=== PATIENT | female | born 1960 | race Caucasian/White ===

== ENCOUNTER 2018-06-10 12:06 | Inpatient (IN) ==
--- NOTE | 2018-06-01 16:22 | Anesthesiology Consultation ---
Date of Service June 01, 2018 Assessment & Plan (1) Encounter for pre-operative examination: Plan: Patient noted to have new anemia on pre-op labs, and PCP alerted. Evaluated by PCP 06/09. Per clearance note: "Likely iron def anemia due to UGI etiology, ? Gastritis, ulcer. She is off her NSAIDS at this time. Continue PPI. Start iron supplement. Consider EGD or hematology referral. Check CBC and smear in 1-2 months. She has no known cardiac issues, pt is asymptomatic, I think she is stable for surgery." Dr Contreras notified re: significant anemia. Chart Review Chart Review: Acceptable Risk for Surgery and Patient seen in Pre Admission Testing Teaching & Discussion Instructed NPO after midnight before surgery, except medications with 15 cc of water. Medication instructions provided according to the PAT guidelines. History Surgery Operation Date: 06/10/18 08:50 Proposed Procedures p Right Total Hip Replacement - Wilmer Contreras MD Height/Weight Height: 5 ft 6 in Weight: 71.8 kg Allergies Allergy/AdvReac Type Severity Reaction Status Date / Time No Known Allergies Allergy Verified 05/28/18 08:51 Medications Home Medications Medication Instructions Recorded Confirmed Last Taken diclofenac sodium 1 dose TOPICAL UD PRN 05/28/18 05/28/18 Unknown etodolac 500 mg PO BID 05/28/18 05/28/18 Unknown lisinopril 10 mg PO QAM 05/28/18 05/28/18 Unknown omeprazole 20 mg PO QAM 05/28/18 05/28/18 Unknown tolterodine 2 mg PO QAM 05/28/18 05/28/18 Unknown Past Medical History Medical History GERD (gastroesophageal reflux disease) Hypertension Iron deficiency anemia Osteoarthritis Overactive bladder Past Surgical History Surgical History History of colonoscopy History of tubal ligation Past Anesthesia History No Hx of Anesthesia Complications and No Family Hx of Anesthesia Complications History of PONV No Motion Sickness Screening History of Motion Sickness: No Social History Smoking Status: Current every day smoker tobacco type: cigarettes Smoking cigarettes per day: 1 PACK Q 3 DAYS x 20yrs Do You Dip or Chew Tobacco: No Hx Alcohol Use: Yes Alcohol type: wine alcohol intake frequency: a few times a month Hx Substance Use: No substance use type: does not use Exercise / Class Metabolic Activity III < 4 Walking/Shop/Light housework (Denies CP or SOB with stairs but currently very limited by hip pain) Review of Systems Pt denies any recent chest pain, shortness of breath, palpitations, cough, fever or URI. Physical Exam Vital Signs BP: 143/82 (pt follows with PCP for HTN) P: 71bpm SPO2: 98% RA T: 98.1 F R: 16 ENMT Mouth: + dentures (full upper); no chipped teeth and no loose teeth Thyromental Distance: > or= 3.5 Finger Breadths (4.0) Mallampati Class: II Mouth / Teeth: 1. missing 2. missing Neck normal visual inspection; neck extension not limited Respiratory normal respiratory effort Auscultation: lungs clear to auscultation bilaterally Cardiovascular Rate/Rhythm: regular rate and regular rhythm Heart Sounds: no murmur Vessels: no carotid bruit Testing Electrocardiogram Date: 06/01/18 Findings: + NSR @ (81) Chest X-Ray Date: 06/01/18 Findings: + NAD Laboratory Results 06/01/18 14:30 06/01/18 14:30 Blood Type A Positive 06/01/18 14:30 Antibody Screen NEGATIVE 06/01/18 14:30 PT 10.1 Seconds (9.0-12.0) 06/01/18 14:30 INR 1.0 (0.9-1.1) 06/01/18 14:30 APTT 23.8 Seconds (21.0-31.0) 06/01/18 14:30 PCP Repeated Labs 06/07 WBC: 7.61 H/H: 9.8/32.3 PLATELETS: 524
--- NOTE | 2018-06-01 16:25 | PAT Medication Instructions ---
Medication Instructions Date of Service June 01, 2018 Home Medications diclofenac sodium 1 dose TOPICAL UD PRN etodolac 500 mg PO BID lisinopril 10 mg PO QAM omeprazole 20 mg PO QAM tolterodine 2 mg PO QAM ASK your surgeon for instructions etodolac 500 mg PO BID STOP taking 24 hours before surgery diclofenac sodium 1 dose TOPICAL UD PRN DO NOT take the morning of surgery lisinopril 10 mg PO QAM tolterodine 2 mg PO QAM Take morning of surgery With a small sip of water, OTHERWISE NOTHING TO EAT OR DRINK AFTER MIDNIGHT: omeprazole 20 mg PO QAM Other Notes If you have any questions please call us at [phone] or [phone] or [phone] or [phone]
[2018-06-01 17:03] LABS: Basophils # (auto) 0.17 K/uL (0-0.2); Eosinophils # (auto) 0.28 K/uL (0-0.5); Eosinophils % (auto) 3.3 %; Hematocrit (blood only) 31.8 % (37-47); Hemoglobin 9.7 g/dL (12.0-16.0); Immature Granulocytes # (auto) 0.02 K/uL (0.00-0.02); Immature Granulocytes % (auto) 0.2 %; Lymphocytes # (auto) 2.43 K/uL (1.2-3.4); Lymphocytes % (auto) 28.6 %; Mean Corpuscular Hgb Conc 30.5 g/dL (32-36); Mean Corpuscular Volume 94.1 fL (80-100); Monocytes # (auto) 0.76 K/uL (0.11-0.59); Neutrophils # (auto) 4.83 K/uL (1.4-6.5); Neutrophils % (auto) 56.9 %; Platelet Count 535 K/uL (130-400); RDW Coefficient of Variation 14.6 % (11.5-14.5); RDW Standard Deviation 50.3 fL (36.4-46.3); Red Blood Count 3.38 M/uL (4.2-5.4); White Blood Count 8.49 K/uL (4.8-10.8)
[2018-06-01 17:14] LABS: Partial Thromboplastin Ratio 0.9; Partial Thromboplastin Time 23.8 Seconds (21.0-31.0); Prothrombin Time 10.1 Seconds (9.0-12.0)
--- NOTE | 2018-06-01 17:14 | XRay Report ---
XR chest Pre-admission PA/Lat HISTORY: Preop. COMPARISON: None. FINDINGS: The lungs are clear. Cardiac silhouette is normal in size. No pleural effusions. No pneumot horax. Old, healed right-sided rib fractures. IMPRESSION: No acute process. Electronically signed by: Miguel A Jose M.D. 06/01/2018 5:13 PM
[2018-06-01 17:15] LABS: BUN Creatinine Ratio 21.1 (10-20); Blood Urea Nitrogen 16 mg/dl (7-18); C Reactive Protein < 0.29 mg/dl (0-0.29); Calcium 8.8 mg/dl (8.5-10.1); Carbon Dioxide 29 mmol/L (21-32); Chloride 107 mmol/L (98-107); Creatinine Clr Calc Pharmacy 81.8 ml/min; Est GFR (African American) 99.3; Est GFR (Non-African American) 85.7; Glucose 112 mg/dl (70-99); Potassium 4.3 mmol/L (3.5-5.1); Sodium 140 mmol/L (136-145)
--- NOTE | 2018-06-04 10:04 | History and Physical Report ---
DATE OF ADMISSION: 06/10/2018 CHIEF COMPLAINT: Bilateral hip pain and discomfort, right side greater than left. 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 She has about a year history of markedly increasing bilateral hip pain and discomfort, right side a bit worse than the left. She has been through extensive conservative treatment including multiple medicines without adequate relief. She is now using oral meds as well as a topical gel. She has resorted to using a cane due to the severe pain. 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 X-ray show advanced bilateral hip arthritis. She now likes to proceed with surgical treatment. She has been to [facility] as well without adequate relief. PAST MEDICAL HISTORY: 1. Arthritis. 2. Hypertension. PAST SURGICAL HISTORY: Include tubal ligation. ALLERGIES: None. CURRENT MEDICATIONS: 1. Lisinopril 10 mg. 2. Diclofenac gel. 3. Etodolac. 4. Detrol. SOCIAL HISTORY: A 57-year-old white female. 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 She is from [place]. She is . Rare alcohol intake. FAMILY HISTORY: Significant for heart disease. REVIEW OF SYSTEMS: Negative for diabetes, neurologic problems, vascular problems or bleeding disorders. No chest pain or shortness of breath. No signs of DVT or PE. PHYSICAL EXAMINATION: GENERAL: The patient is a pleasant, relatively healthy, middle-aged female, looks to be in pretty good health. HEENT: Benign. NECK: Supple. No lymphadenopathy. LUNGS: Clear to auscultation. HEART: Has a regular rate and rhythm. ABDOMEN: Soft, nontender, nondistended. EXTREMITIES: Grossly neurovascularly intact except as follows. Examination of both hips reveal patient walks with a markedly antalgic gait. She waddles when she walks. Leg lengths clinically appear pretty equal. She has very stiff hips on both sides. She has pain with any type of internal rotation of either hip. She can internally rotate to -10 about on both sides. Negative straight leg raise. No knee effusion. X-RAYS: X-rays of both hips reveal advanced bilateral hip DJD. She has cystic changes of the femoral head and flattening of the femoral head on both sides. She has cystic change of the acetabulum as well. She has got complete loss of the joint space. ASSESSMENT: A 57-year-old white female with advanced bilateral hip degenerative joint disease, failed conservative care. This has progressed markedly over the past year and she is having trouble doing her job. She would like to proceed with surgical treatment. PLAN: We will take her to the operating room and do a right total hip replacement. She is hoping to do the left one about 6 weeks later. The risks and benefit of right total hip replacement were explained to the patient including but not limited to DVT, PE, , infection, neurological injury, vascular injury, bleeding problem, pain, limited range of motion, stiffness, failure to relieve her symptoms, incomplete relief of symptoms, need for further surgery in future, fracture, leg length inequality, nerve palsy, dislocation, etc. The patient understands and desires to proceed. Informed consent was obtained. We did do a preoperative workup and her hemoglobin is a bit low and her platelets are elevated. She is currently undergoing a workup for this. Assuming this is all cleared up, we will proceed as described above. She is hoping doing the other hip about 6 weeks later. I did talk to her about lengthening her leg and we will bring her right leg back to its normal length and therefore it is going to feel longer than the left leg until that gets fixed surgically as well. The patient understands.
[~2018-06-10 12:06] MED LIST: ACETAMINOPHEN 500 MG TAB PO SCH; BUPIVACAINE 0.5 % 5 MG/1 ML PF 10ML VIAL ONE; CEFAZOLIN 2000MG 2,000 MG/15 ML SYR IV SCH; FAMOTIDINE 20 MG TAB PO SCH; GABAPENTIN 300 MG x 2 PO SCH; LR 500ML BOLUS, THEN 15ML/HR IV SCH; LR 60ML/HR IV SCH; METOCLOPRAMIDE HCL 10 MG TABLET PO SCH; SCOPOLAMINE 1.5 MG TDSY TD SCH; TRANEXAMIC ACID 1,000 MG **IV Intra-op IV SCH
[2018-06-10] MEDS ORDERED: ONDANSETRON INJ 2 MG/ML 2 ML VIAL IV PRN ×3 (12:11→17:19)
[2018-06-10] MEDS ORDERED: fentaNYL citrate 100 MCG/2 ML VIAL IV PRN (12:11)
[2018-06-10] MEDS ORDERED: ATROPINE SULFATE 0.1 MG/ML 10ML SYR IV PRN (12:11)
[2018-06-10] MEDS ORDERED: ePHEDrine sulfate 50 MG/ML AMP IV PRN ×2 (12:11→14:32)
[2018-06-10] MEDS ORDERED: MIDAZOLAM HCL 1 MG/ML 2ML VIAL ONE (12:21)
[2018-06-10] MEDS ORDERED: DEXAMETHASONE SOD INJ 4 MG/ML VIAL ONE (12:23)
[2018-06-10] MEDS ORDERED: PROPOFOL IV EMULSION 10 MG/ML 20 ML VIAL IV ONE (12:23)
[2018-06-10] MEDS ORDERED: ONDANSETRON INJ 2 MG/ML 2 ML VIAL ONE (12:23)
[2018-06-10] MEDS ORDERED: LIDOCAINE HCL 2% 2 ML VIAL/AMP(20MG/ML) INFIL ONE (12:23)
--- NOTE | 2018-06-10 12:50 | History & Physical Bridge Note ---
Date of Service June 10, 2018 History & Physical Bridge Note I have examined the patient, reviewed the History & Physical and in the interval since the performance of the History & Physical I have noted the following changes of clinical significance: no changes noted
[2018-06-10] MEDS ORDERED: BUPIVACAINE/EPINEPHRINE 0.5% MPF 1:200,000 30 ML VIAL ONE (12:59)
[2018-06-10] MEDS ORDERED: BACITRACIN INJ 50,000 UNIT VIAL ONE (13:00)
[2018-06-10] MEDS ORDERED: MoRPHine SULFATE PF 1 MG/ML 10 ML AMP/VIAL ONE (14:20)
[2018-06-10] MEDS ORDERED: MoRPHine SULFATE PF 1 MG/ML 10 ML AMP/VIAL INT SPINAL ONE (14:32)
[2018-06-10] MEDS ORDERED: NALOXONE HCL 0.4 MG/1 ML VIAL/CARP IV PRN ×2 (14:32→17:19)
[2018-06-10] MEDS ORDERED: DiphenhydrAMINE HCL 50 MG/ML VIAL IV PRN (14:32)
[2018-06-10] MEDS ORDERED: NALOXONE HCL 1 MG in SODIUM CHLORIDE 0.9% 1000ML 1,000 ML IV PRN (14:32)
[2018-06-10] MEDS ORDERED: MoRPHine SULFATE 2 MG/ML CARP IV PRN (14:32)
[2018-06-10] MEDS ORDERED: NALOXONE HCL 0.08 MG in SYRINGE 1.8 ML IV PRN (14:32)
[2018-06-10] MEDS ORDERED: HYDROmorphone INJ 0.5 MG/0.5 ML SYR IV PRN ×2 (14:32→17:19)
[2018-06-10] MEDS ORDERED: LACTATED RINGER'S 500 ML IV PRN (14:32)
[2018-06-10] MEDS ORDERED: NALBUPHINE HCL INJ 10 MG/ML AMP IV PRN (14:32)
[2018-06-10] MEDS ORDERED: SODIUM CHLORIDE 0.9% 1000ML 1,000 ML IV SCH (14:45)
[2018-06-10] MEDS ORDERED: NO NARCOTICS OR SEDATIVES SCH (14:45)
[2018-06-10] MEDS ORDERED: ALBUMIN HUMAN 5% 12.5 GM/250 ML VIAL IV ONE (15:35)
[2018-06-10] MEDS ORDERED: PHENYLEPHRINE 100MCG/ML 5ML SYR ONE (15:41)
--- NOTE | 2018-06-10 16:19 | Post Operative Brief Note ---
Immediate Post Op Note v1 Date of Surgery June 10, 2018 Pre & Post Diagnosis Operation Date: 06/10/18 14:20 Pre-Op Diagnosis: Right Hip Degenerative Joint Disease Post-Op Diagnosis: Right Hip Degenerative Joint Disease Procedure Operation Date: 06/10/18 14:20 Actual Procedures p Right Total Hip Replacement(Right) - Wilmer Contreras MD Surgeon Wilmer Contreras MD Hat Band Attacher Shannan, PAC Estimated Blood Loss 200 Findings Consistent with Post-Op Diagnosis Fluids 1200 cc Specimens Right Femoral Head Drains Huynh Catheter Anesthesia Type Spinal MAC Complications none Disposition Accompanied Patient To Recovery: Yes Disposition: Recovery Room
--- NOTE | 2018-06-10 16:44 | XRay Report ---
XR hip 1V RT w pelvis CLINICAL HISTORY: IN PACU - A/P PELVIS and LATERAL HIP COMPARISON: None. DISCUSSION: Anatomic alignment post total right hip arthroplasty. Good contact between prosthetic and underlying bone. Expected soft tissue postoperative changes. Severe degenerative change left hip. IMPRESSION: Anatomic alignment post total right hip arthroplasty. The above report was generated using voice recognition software. It may contain grammatical, syntax or spelling errors. Electronically signed by: Brodie Garcia M.D. 06/10/2018 4:42 PM
--- NOTE | 2018-06-10 17:07 | Anesthesiology Progress Note ---
Date of Service June 10, 2018 Anesthesia Post Procedure Vital Signs Vital Signs: Temp Pulse Pulse Resp BP Pulse Ox 06/10/18 17:00 66 18 113/57 L 100 06/10/18 16:50 36.4 C L 61 14 101/60 100 06/10/18 16:40 70 15 112/63 100 06/10/18 16:30 65 19 105/52 L 100 06/10/18 16:20 36.1 C L 72 20 96/57 L 98 06/10/18 12:28 36.9 C 90 20 123/102 H 99 Notes Mental Status: alert / awake / arousable Patient Amnestic to Procedure: Yes Nausea / Vomiting: adequately controlled Pain: adequately controlled Airway Patency, RR, SpO2: stable & adequate BP & HR: stable & adequate Neuraxial Anesthesia: was administered and sensory block is resolving Anesthetic Complications: no major complications apparent
[2018-06-10] MEDS ORDERED: MAGNESIUM HYDROXIDE SUSP 30 ML UDC PO PRN (17:19)
[2018-06-10] MEDS ORDERED: ALUMINUM/MAGNESIUM SUSP 30 ML UDC PO PRN (17:19)
[2018-06-10] MEDS ORDERED: BISACODYL 10 MG SUPP PR PRN (17:19)
[2018-06-10] MEDS ORDERED: METOCLOPRAMIDE HCL INJ 5 MG/ML 2 ML VIAL IV PRN (17:19)
[2018-06-10] MEDS ORDERED: OXYCODONE HCL IR 5 MG TAB (IMMEDIATE RELEASE) PO PRN (17:19)
[2018-06-10] MEDS: CHECK SCOPOLAMINE PATCH PLACEMENT SCH ×2 (18:47→23:18)
[2018-06-10] MEDS: ASCORBIC ACID 500 MG TAB PO SCH (18:51)
[2018-06-10] MEDS: FERROUS GLUCONATE 324 MG TAB PO SCH (18:51)
[2018-06-10] MEDS: KETOROLAC 30 MG/ML VIAL IV SCH ×2 (18:51→23:18)
[2018-06-10] MEDS: DOCUSATE SODIUM 100 MG CAP PO SCH (20:01)
[2018-06-10] MEDS: SENNA 8.6 MG TAB PO SCH (20:01)
[2018-06-10] MEDS: ASPIRIN 81 MG ECTAB PO SCH (20:01)
--- NOTE | 2018-06-10 20:41 | Progress Note ---
DATE: 06/10/2018 SUBJECTIVE: A 57-year-old white female postop from a right hip replacement. She is doing pretty well. Really not having any pain yet. No chest pain or shortness of breath. Not feeling dizzy or lightheaded. OBJECTIVE: VITAL SIGNS: Temperature 36.8. Vital signs stable. PHYSICAL EXAMINATION: GENERAL: Reveals a pleasant middle-aged female who is sitting up in bed and talking to her family. She looks comfortable. LUNGS: Clear to auscultation. HEART: Has a regular rate and rhythm. ABDOMEN: Soft, nontender, nondistended. EXTREMITIES: Grossly neurovascularly intact except as follows: Examination of the right hip and leg reveals the leg lengths to be equal. Dressing is clean, dry and intact. Thigh is soft and supple. She is neurologically intact. She can dorsiflex and plantarflex her foot appropriately. X-RAYS: X-ray of the right hip from recovery room reviewed, the patient has right uncemented total hip arthroplasty. Components look to be in good position. No signs of problems. ASSESSMENT: A 57-year-old white female postop from right hip replacement, doing pretty well. She does have underlying chronic iron deficiency anemia. She is currently asymptomatic. Her pain is controlled. Hip is located. She is neurologically intact. PLAN: 1. DVT prophylaxis including thigh high TEDs, SCDs and aspirin twice a day. 2. PT/OT. Weight bear as tolerated. Right total hip protocol. 3. Pain control, doing well with current pain regimen. 4. Anemia. We will continue iron supplementation. Check an H and H in the morning. 5. Disposition: Plan to discharge to home likely with some home health once adequately recovered. NAY
[2018-06-10] MEDS ORDERED: TAPENTADOL HCL ER 50 MG TABCR PO SCH (21:00)
[2018-06-10] MEDS: ACETAMINOPHEN 500 MG TAB PO SCH (21:05)
[2018-06-10] MEDS: SODIUM CHLORIDE 0.9% 1000ML 1,000 ML IV SCH (21:07)
[2018-06-10] MEDS: NICOTINE 14 MG/24 HR PATCH TD SCH (21:54)
[2018-06-10] MEDS: CEFAZOLIN 1000MG 1,000 MG/7.5 ML SYR IV SCH (22:28)
[2018-06-10] MEDS ORDERED: TRANEXAMIC ACID 1,000 MG in 0.9 % SODIUM CHLORIDE 100 ML IV SCH (22:30)
--- NOTE | 2018-06-10 23:15 | Operative Report ---
DATE OF OPERATION: 06/10/2018 SURGEON: Wilmer Contreras MD. PIPE SMOKING MACHINE OFFBEARER: JT Rodas. PREOPERATIVE DIAGNOSIS: Right hip degenerative joint disease. POSTOPERATIVE DIAGNOSIS: Right hip degenerative joint disease. PROCEDURE PERFORMED: Right uncemented ceramic on highly cross-linked polyethylene total hip arthroplasty. COMPLICATIONS: None. ESTIMATED BLOOD LOSS: 200 mL. FLUID REPLACEMENT: 1200 mL crystalloid fluid replacement. ANESTHESIA: Spinal. DRAINS: None. SPECIMENS: Right femoral head sent for pathology. OPERATIVE INDICATIONS: The patient is a 57-year-old female who has had a year history of bilateral increasing hip pain and discomfort, right side a bit worse than the left. X-ray showed advanced hip arthritis in both hips which has been rapidly progressed over the past year. She failed conservative treatment and elected to proceed with operative treatment. OPERATIVE FINDINGS: Operative findings revealed advanced right hip DJD. Extensive grade 4 changes most severe in the femoral head and the acetabulum as well. Moderate size joint effusion. OPERATIVE IMPLANTS: Operative implants consisted of: 1. Biomet G7 size 54 mm acetabular shell. 2. A 6.5 cancellous acetabular screws, one at 35 mm length and one at 20 mm length. 3. An apex hole eliminator. 4. The highly cross-linked polyethylene liner with a 54 mm outer diameter and 36 mm inner diameter. 5. DePuy size 12 KLA femoral stem. 6. A +5/36 mm ceramic articular ball. OPERATIVE PROCEDURE: The patient taken to the operating room, identified and placed on the operating room table in supine position. All contact areas were appropriately padded. IV antibiotics were provided by anesthesia team. Spinal anesthetic had been implemented in the holding area. Huynh catheter was placed in sterile fashion. The patient was then placed in the left lateral decubitus position. An axillary roll was placed. Counts Include [facility] hip positioner was used for positioning. Right hip and leg were then prepped and draped in the usual sterile fashion. A posterolateral approach to the right hip was then performed through a curvilinear incision centered over the greater trochanter. Sharp dissection was carried through subcutaneous tissues down to the level of IT band and gluteal fascia. The IT band and gluteal fascia were incised longitudinally in line with skin incision. The underlying greater trochanteric bursa was excised. The piriformis and external rotators were tagged and taken off the posterior aspect of the femur. Great care was taken throughout the procedure to protect the sciatic nerve at all times. Posterior capsulotomy was then performed leaving a large flap for later repair. Hip was internally rotated and dislocated. Femoral neck osteotomy cut was made with final cut about 10 mm above the lesser trochanter. Femoral head was removed and sent for pathology. The femur was retracted anteriorly. Attention was then drawn to the acetabulum. The acetabular labrum was excised. The pulvinar fat was excised. Sequential reaming of the acetabulum was then performed beginning with size 47 and progressing up to 53. A 54 mm Biomet G7 acetabular shell was then placed in about 40 degrees of lateral opening and 20 degrees of anteversion. It was fixed with two 6.5 cancellous acetabular screws. An anterior osteophyte was removed. A trial liner was placed. Attention was then drawn to the femur. The proximal femur was entered with Kenguru cutter followed by canal finder. I then broached beginning with a size 8 and progressing up to 12. We got excellent fit at 12. Calcar reamer was used to smoothen off the calcar. I then trialed the hip and the +5 articular ball, recreated soft tissue tension appropriately and was fully stable in full extension and external rotation, flexion to 90 degrees, internal rotation to 60+ degrees. I did realize I probably lengthened this leg a little bit compared to the opposite leg, but she is going to need hip surgery on the other side as well. She was forewarned of this and we elected to use these implants. All trial implants were removed. An apex hole eliminator was placed. Highly cross-linked polyethylene liner was placed. A DePuy Corail size 12 KLA femoral stem was impacted in position. A +5/36 mm ceramic articular ball was placed. Hip was located and once again found to be stable. Attention was then drawn toward closing. The wound was irrigated with copious amounts of pulsatile lavage solution. I did inject locally with 60 mL of 0.5% Marcaine with epinephrine. The posterior capsule and external rotators were then repaired through drill holes in the posterior trochanter with #2 Ti-Cron suture. The IT band and gluteal fascia were then closed with #1 PDS suture in running fashion. Subcutaneous tissues were then closed with 2 layers with the deep layer #2 Vicryl suture and subcutaneous tissues with 2-0 Dexon suture in a buried interrupted fashion. The skin was closed with skin la. Leg was then cleaned and dried and a sterile dressing of Xeroform, 4 x 4's, ABD pad and foam tape was applied. The patient then transferred to the recovery room in stable condition. The patient tolerated the procedure well with no complications. All needle and sponge counts were correct at the end of the operation. I attest to the content of the Intraoperative Record and any orders documented therein. Any exception s are noted below.
[2018-06-11] MEDS: ACETAMINOPHEN 500 MG TAB PO SCH ×3 (06:19→21:58)
[2018-06-11] MEDS: KETOROLAC 30 MG/ML VIAL IV SCH ×3 (06:20→17:50)
[2018-06-11] MEDS: CEFAZOLIN 1000MG 1,000 MG/7.5 ML SYR IV SCH (06:20)
[2018-06-11 06:21] LABS: Basophils # (auto) 0.03 K/uL (0-0.2); Basophils % (auto) 0.2 %; Hematocrit (blood only) 25.8 % (37-47); Hemoglobin 7.9 g/dL (12.0-16.0); Immature Granulocytes # (auto) 0.03 K/uL (0.00-0.02); Immature Granulocytes % (auto) 0.2 %; Lymphocytes # (auto) 1.79 K/uL (1.2-3.4); Lymphocytes % (auto) 11.8 %; Mean Corpuscular Hgb Conc 30.6 g/dL (32-36); Mean Corpuscular Volume 92.1 fL (80-100); Mean Platelet Volume 9.1 fL (7.4-10.4); Monocytes # (auto) 1.74 K/uL (0.11-0.59); Monocytes % (auto) 11.5 %; Neutrophils # (auto) 11.55 K/uL (1.4-6.5); Neutrophils % (auto) 76.3 %; Platelet Count 410 K/uL (130-400); RDW Coefficient of Variation 14.3 % (11.5-14.5); RDW Standard Deviation 48.2 fL (36.4-46.3); White Blood Count 15.14 K/uL (4.8-10.8)
[2018-06-11 06:49] LABS: Hypochromasia Present
[2018-06-11 06:50] LABS: BUN Creatinine Ratio 26.7 (10-20); Calcium 8.2 mg/dl (8.5-10.1); Creatinine Clr Calc Pharmacy 78.5 ml/min; Est GFR (African American) 104.2; Est GFR (Non-African American) 89.9; Potassium 3.7 mmol/L (3.5-5.1)
--- NOTE | 2018-06-11 08:24 | Anesthesiology Progress Note ---
Date of Service June 11, 2018 Anesthesia Post Procedure Vital Signs Vital Signs: Temp Pulse Pulse Pulse Pulse Resp BP 06/11/18 08:01 36.7 C 60 16 106/66 06/11/18 06:00 18 06/11/18 05:00 18 06/11/18 04:37 63 107/63 06/11/18 04:00 36.9 C 64 18 101/56 L 06/11/18 03:00 16 06/11/18 02:00 18 06/11/18 01:00 18 06/11/18 00:00 18 06/10/18 23:04 37.0 C 64 13 112/72 06/10/18 23:00 18 06/10/18 22:01 16 06/10/18 21:09 36.4 C L 62 20 131/74 06/10/18 20:00 18 06/10/18 19:29 36.8 C 62 16 134/70 06/10/18 18:11 36.8 C 59 L 16 138/87 06/10/18 17:47 36.6 C 64 16 117/72 06/10/18 17:10 36.5 C 66 16 104/63 06/10/18 17:00 66 18 113/57 L 06/10/18 16:50 36.4 C L 61 14 101/60 06/10/18 16:40 70 15 112/63 06/10/18 16:30 65 19 105/52 L 06/10/18 16:20 36.1 C L 72 20 96/57 L 06/10/18 12:28 36.9 C 90 20 123/102 H Pulse Ox 06/11/18 08:01 92 06/11/18 06:00 96 06/11/18 05:00 99 06/11/18 04:37 99 06/11/18 04:00 98 06/11/18 03:00 94 06/11/18 02:00 94 06/11/18 01:00 97 06/11/18 00:00 99 06/10/18 23:04 97 06/10/18 23:00 94 06/10/18 22:01 99 06/10/18 21:09 99 06/10/18 20:00 100 06/10/18 19:29 93 06/10/18 18:11 100 06/10/18 17:47 06/10/18 17:10 100 06/10/18 17:00 100 06/10/18 16:50 100 06/10/18 16:40 100 06/10/18 16:30 100 06/10/18 16:20 98 06/10/18 12:28 99 Pain Intensity Right Hip: Pain Intensity: 6 Notes Mental Status: alert / awake / arousable Nausea / Vomiting: adequately controlled Pain: adequately controlled Airway Patency, RR, SpO2: stable & adequate BP & HR: stable & adequate Hydration State: stable & adequate Neuraxial Anesthesia: was administered and sensory block resolved Anesthetic Complications: no major complications apparent and Pt Satisfied with anesthetic care
[2018-06-11] MEDS ORDERED: DC INTRASPINAL MORPHINE ONE (08:33)
[2018-06-11] MEDS ORDERED: ONDANSETRON INJ 2 MG/ML 2 ML VIAL IV PRN (08:34)
[2018-06-11] MEDS ORDERED: HYDROmorphone INJ 0.5 MG/0.5 ML SYR IV PRN (08:34)
[2018-06-11] MEDS ORDERED: NALOXONE HCL 0.4 MG/1 ML VIAL/CARP IV PRN (08:34)
[2018-06-11] MEDS: ASCORBIC ACID 500 MG TAB PO SCH ×2 (08:57→17:49)
[2018-06-11] MEDS: FERROUS GLUCONATE 324 MG TAB PO SCH ×2 (08:57→17:49)
[2018-06-11] MEDS: DOCUSATE SODIUM 100 MG CAP PO SCH ×2 (08:58→20:34)
[2018-06-11] MEDS: TOLTERODINE TARTRATE LA 2 MG CAPCR PO SCH (08:58)
[2018-06-11] MEDS: ASPIRIN 81 MG ECTAB PO SCH ×2 (08:59→20:33)
[2018-06-11] MEDS: PANTOprazole 40 MG TAB PO SCH (08:59)
[2018-06-11] MEDS: MULTIVITAMIN TAB PO SCH (08:59)
[2018-06-11] MEDS: LISINOPRIL 10 MG TAB PO SCH (09:00)
[2018-06-11] MEDS: SODIUM CHLORIDE 0.9% 1000ML 1,000 ML IV SCH (09:02)
[2018-06-11] MEDS: TAPENTADOL HCL ER 50 MG TABCR PO SCH ×2 (09:02→20:33)
--- NOTE | 2018-06-11 12:23 | Progress Note ---
DATE: 06/11/2018 SUBJECTIVE: A 57-year-old white female postop day 1 from a right hip replacement. She is doing pretty well. Some pain, but managed. No chest pain or shortness of breath. Not feeling dizzy or lightheaded. OBJECTIVE: VITAL SIGNS: Temperature 36.6. Vital signs stable. GENERAL: Physical examination reveals a pleasant, middle-aged female, sitting up at her bedside chair and looks comfortable. EXTREMITIES: Examination of the right hip reveals the leg lengths to be equal. Her hip is located. Dressing is clean, dry and intact. Thigh is soft and supple. She is neurologically intact. LABORATORY DATA: Hemoglobin is 7.9. Hematocrit 25.8. Electrolytes are stable. ASSESSMENT: A 57-year-old white female with some underlying chronic anemia, postop day 1 from a right hip replacement. She is doing pretty well. Pain is controlled. She is anemic, but without symptoms. PLAN: 1. DVT prophylaxis including thigh-high TEDs, SCDs, and aspirin twice a day. 2. PT/OT. Weight bear as tolerated. Right total hip protocol. 3. Pain control, doing pretty well with current pain regimen. 4. Anemia. Continue iron supplementation. She is currently asymptomatic. She can tolerate a fairly low hemoglobin at her age. 5. Disposition: She is planning to be discharged to home with some home health once adequately recovered.
[2018-06-11] MEDS: OXYCODONE HCL IR 5 MG TAB (IMMEDIATE RELEASE) PO PRN ×2 (14:05→20:32)
[2018-06-11] MEDS: SENNA 8.6 MG TAB PO SCH (20:34)
[2018-06-12] MEDS: KETOROLAC 30 MG/ML VIAL IV SCH ×3 (00:01→11:47)
[2018-06-12] MEDS: ACETAMINOPHEN 500 MG TAB PO SCH (06:06)
[2018-06-12] MEDS: FERROUS GLUCONATE 324 MG TAB PO SCH (07:43)
[2018-06-12] MEDS: ASCORBIC ACID 500 MG TAB PO SCH (07:43)
[2018-06-12] MEDS: DOCUSATE SODIUM 100 MG CAP PO SCH (07:43)
[2018-06-12] MEDS: TOLTERODINE TARTRATE LA 2 MG CAPCR PO SCH (07:44)
[2018-06-12] MEDS: ASPIRIN 81 MG ECTAB PO SCH (07:44)
[2018-06-12] MEDS: PANTOprazole 40 MG TAB PO SCH (07:45)
[2018-06-12] MEDS: TAPENTADOL HCL ER 50 MG TABCR PO SCH (07:45)
[2018-06-12] MEDS: MULTIVITAMIN TAB PO SCH (07:45)
[2018-06-12] MEDS: OXYCODONE HCL IR 5 MG TAB (IMMEDIATE RELEASE) PO PRN ×2 (07:45→11:47)
[2018-06-12] MEDS: LISINOPRIL 10 MG TAB PO SCH (07:46)
[2018-06-12] MEDS: NICOTINE 14 MG/24 HR PATCH TD SCH (07:47)
--- NOTE | 2018-06-12 11:53 | Progress Note ---
DATE: 06/12/2018 ORTHOPEDIC PROGRESS NOTE SUBJECTIVE: The patient is a 57-year-old female 2 days status post right total hip arthroplasty. She was seen today in her room sitting on the side of the bed in her chair, alert and oriented, doing well. Pain is minimal. OBJECTIVE: VITAL SIGNS: Temperature 36.7, blood pressure 107/69, pulse is 84. GENERAL: She is alert and oriented and comfortable at this time. No lightheadedness, shortness of breath. EXTREMITIES: Examination of her right leg, her dressing is intact. There is no drainage. Good range of motion of her hip right now, no calf tenderness noted. LABORATORY DATA: Other lab work reveals her H and H is 7.9 and 25.8, yesterday was 9.7 and 31.8. ASSESSMENT: A 57-year-old female 2 days status post right total hip arthroplasty, doing well. PLAN: 1. We will go ahead with DVT prophylaxis including thigh-high VIVIAN stockings and aspirin. 2. She will do outpatient home therapy now, weightbear as tolerated per right total hip protocol. 3. She is currently anemic. Preoperatively, they were aware of that and her family doctor, analytics intern, Dr. Maya was aware. Dr. Contreras discussed preoperatively her H and H with Dr Moore.. At this time, she is well tolerated with it. Not dizzy, not lightheaded. Pulses in the 80 range. We are going to sit tight with any blood transfusion and she will do an additional workup and follow up with her family doctor, Dr. Maya to assess her hemoglobin. 4. Disposition: Plan to discharge home today with home health care. NAY
--- NOTE | 2018-06-16 06:52 | Discharge Summary ---
Date of Service June 22, 2018 Discharge Data Consultations 06/11/18 08:00 Consult Case Management - Discharge Planning Routine Procedures Performed Operation Date: 06/10/18 14:20 Actual Procedures p Right Total Hip Replacement(Right) - Wilmer Contreras MD
--- NOTE | 2018-06-20 22:41 | Discharge Summary ---
ADMITTING DIAGNOSIS: Right hip degenerative joint disease. SURGERY PERFORMED: Right total hip arthroplasty. SECONDARY DIAGNOSES: Arthritis, hypertension, and chronic iron deficiency anemia. CONSULTS: None obtained. HISTORY AND PHYSICAL EXAMINATION: Well documented in the patient's chart. HOSPITAL COURSE: The patient was admitted on 06/10/2018 and underwent total hip arthroplasty, tolerated the procedure well, there were no complications. She was transferred to the PACU postoperatively and later to the orthopedic floor for further care. She was given Ancef for antibiotic prophylaxis, VIVIAN stockings, SCDs, and aspirin for DVT prophylaxis. Hemoglobin, hematocrit, and vital signs were monitored during her hospital stay. She did have some chronic anemia. She was given an iron supplement. Her hemoglobin dropped down to 7.9 postoperatively. She did not require any blood transfusions. There were no complications. By postoperative day 2, she was tolerating a regular diet. Pain was controlled with oral pain medicine. She was participating in physical therapy. On postop day 2, she was discharged home, set up with home health services. She was given printed discharge instructions including new prescriptions for Extra Strength Tylenol, aspirin, iron supplement, and oxycodone. Continue her home medications, continue physical therapy, weightbearing as tolerated, VIVIAN stockings, total hip precautions. Follow up in approximately 2 weeks postoperatively or sooner if there are any problems or concerns.
== END 2018-06-12 12:20 | disposition home health service (06) | DRG 470 ==
LOC: ASU 12:06 → 3E 16:32

== ENCOUNTER 2018-07-30 06:12 | Inpatient (IN) ==
--- NOTE | 2018-07-24 12:26 | History and Physical Report ---
DATE OF ADMISSION: 07/30/2018 CHIEF COMPLAINT: Persistent left hip pain and discomfort. 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 She has got a fairly long history of bilateral hip pain and discomfort that has got significantly worse over the past year to the point where she has had to use a cane to get around for the past several months. She has been through extensive conservative treatment without adequate relief. She did undergo a right hip replacement just about 6 weeks ago and has done remarkably well from this. She continued to be limited by her left hip pain. She describes groin pain, thigh pain. No numbness or radicular symptoms. She now would like to have her left hip fixed. The patient does have an underlying history of chronic anemia. She has undergone a workup for this, which has been mostly negative today. They are still evaluating this. She recovered from previous surgery without difficulty. She has no anemic symptoms. PAST MEDICAL HISTORY: 1. Arthritis. 2. Hypertension. 3. Chronic anemia. PAST SURGICAL HISTORY: Previous surgeries include tubal ligation. ALLERGIES: None. CURRENT MEDICATIONS: 1. Lisinopril 10 mg. 2. Diclofenac gel. 3. Etodolac 4. Detrol. SOCIAL HISTORY: A 57-year-old white female. 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 She is . Rare alcohol intake. FAMILY HISTORY: Significant for heart disease. REVIEW OF HISTORY: Negative for diabetes, neurologic problem, vascular disorder or bleeding disorder. Denies any chest pain or shortness of breath. No history of DVT or PE. PHYSICAL EXAMINATION: GENERAL: Shows a pleasant, healthy-appearing, middle-aged female. HEENT: Benign. NECK: Supple. No lymphadenopathy. LUNGS: Clear to auscultation. HEART: Regular rate and rhythm. ABDOMEN: Soft, nontender, nondistended. EXTREMITIES: Grossly neurovascularly intact except as follows: Examination of both hips revealed patient walks with a markedly antalgic and kind of waddling type gait. She comes in using a cane today. Examination of the right hip reveals a well-healed incision. Minimal swelling. She has got pain with hip motion. Examination of the left hip reveals no obvious deformity. She does have pain and stiffness with any type of hip motion. She can internally rotate to about -10. This recreates her pain. Negative straight leg raise. No knee effusion. She is neurologically intact. X-RAYS: X-rays of the left hip reveal advanced left hip DJD. She has got cystic change and flattening of the femoral head and cystic change in the acetabular side as well. ASSESSMENT: A 57-year-old white female with a history of chronic underlying anemia, now 6 weeks out from right hip replacement with advanced left hip degenerative joint disease. She would like to have her left hip fixed. PLAN: We are going to take her to the operating room and do a left total hip replacement. The risks and benefits of this procedure were explained to the patient including but not limited to DVT, PE, , infection, neurological injury, vascular injury, bleeding problem, pain, limited range of motion, stiffness, failure to relieve her symptoms, incomplete relief of symptoms, need for further surgery in future, fracture, leg length inequality, nerve palsy, dislocation, etc. The patient understands and desires to proceed. Informed consent was obtained. She does have this chronic anemia and very well may need a blood transfusion. We got away last time without and hopefully similar. Her blood count is back up to its baseline, which is about a hemoglobin of 10.
--- NOTE | 2018-07-26 09:29 | Anesthesiology Consultation ---
Date of Service July 26, 2018 Assessment & Plan (1) Encounter for pre-operative examination: Chart Review Chart Review: Acceptable Risk for Surgery and Patient NOT seen in Pre Admission Testing Consults Requested none Additional Notes Per hematology note: "...there is no contraindication (to surgery)...The use of perioperative anticoagulation while risky in terms of underlying bleeding source, he will probably be less so with the low-dose aspirin used by Orthopedics... The patient will need a referral to Gastroenterology which certainly can wait until she recovers postoperatively and rehab/P.T." Patient's must recent Hgb is at 9.6 which is higher than the preoperative baseline prior to her last hip replacement. Will ensure type and screen is available for DOS. For her hip replacement on 06/10/18, patient had SAB with duramorph and lost 200 cc of blood. History Surgery Operation Date: 07/30/18 07:00 Proposed Procedures p Left Total Hip Arthroplasty - Wilmer Contreras MD Height/Weight Height: 5 ft 5 in Weight: 69.853 kg Allergies Allergy/AdvReac Type Severity Reaction Status Date / Time No Known Allergies Allergy Verified 07/08/18 09:06 Medications Home Medications Medication Instructions Recorded Confirmed Last Taken diclofenac sodium 1 dose TOPICAL UD PRN 05/28/18 07/08/18 06/07/18 08:00 etodolac 500 mg PO BID 05/28/18 07/08/18 06/09/18 09:00 lisinopril 10 mg PO QAM 05/28/18 07/08/18 06/09/18 09:00 omeprazole 20 mg PO QAM 05/28/18 07/08/18 06/09/18 09:00 tolterodine 2 mg QAM 06/10/18 07/08/18 06/09/18 09:00 acetaminophen [Pain Reliever] 1,000 mg PO Q8 PRN 07/08/18 07/08/18 Unknown tramadol 50 mg PO Q6H PRN 07/08/18 07/08/18 Unknown Past Medical History Medical History GERD (gastroesophageal reflux disease) Hypertension Iron deficiency anemia Occult GI bleeding stool is heme positive - awaiting GI follow-up per hematology post hip replacement Osteoarthritis Overactive bladder Past Surgical History Surgical History History of colonoscopy History of total hip arthroplasty RIGHT PATRICIA= 06/10/18= SAB AT L4-L5 X 1 ATTEMPT AT [facility] History of tubal ligation Past Anesthesia History No Hx of Anesthesia Complications and No Family Hx of Anesthesia Complications History of PONV No Motion Sickness Screening History of Motion Sickness: No Social History Smoking Status: Current every day smoker tobacco type: cigarettes Smoking cigarettes per day: 1 PACK Q 3 DAYS x 20yrs Do You Dip or Chew Tobacco: No Hx Alcohol Use: Yes Alcohol type: wine alcohol intake frequency: a few times a month Hx Substance Use: No substance use type: does not use Exercise / Class Metabolic Activity III < 4 Walking/Shop/Light housework (limited secondary to hip pain) Testing Laboratory Results 07/16/18 WBC: 9.32 H/H: 9.6/32.1 PLATELETS: 573
[~2018-07-30 06:12] MED LIST changes: -BUPIVACAINE 0.5 % 5 MG/1 ML PF 10ML VIAL ONE; -FAMOTIDINE 20 MG TAB PO SCH; -TRANEXAMIC ACID 1,000 MG **IV Intra-op IV SCH; +TRANEXAMIC ACID 1,000 MG **IV Pre-op IV SCH
[2018-07-30] MEDS ORDERED: BUPIVACAINE 0.5 % 5 MG/1 ML PF 10ML VIAL ONE (06:32)
--- NOTE | 2018-07-30 06:48 | History & Physical Bridge Note ---
Date of Service July 30, 2018 History & Physical Bridge Note I have examined the patient, reviewed the History & Physical and in the interval since the performance of the History & Physical I have noted the following changes of clinical significance: no changes noted
[2018-07-30] MEDS ORDERED: MoRPHine SULFATE PF 1 MG/ML 10 ML AMP/VIAL ONE (08:03)
[2018-07-30] MEDS ORDERED: MIDAZOLAM HCL 1 MG/ML 2ML VIAL ONE (08:03)
[2018-07-30] MEDS ORDERED: BACITRACIN INJ 50,000 UNIT VIAL ONE (08:46)
[2018-07-30] MEDS ORDERED: BUPIVACAINE/EPINEPHRINE 0.5% MPF 1:200,000 30 ML VIAL ONE (08:46)
[2018-07-30] MEDS ORDERED: NALBUPHINE HCL INJ 10 MG/ML AMP IV PRN (09:16)
[2018-07-30] MEDS ORDERED: NALOXONE HCL 0.08 MG in SYRINGE 1.8 ML IV PRN (09:16)
[2018-07-30] MEDS ORDERED: HYDROmorphone INJ 0.5 MG/0.5 ML SYR IV PRN (09:16)
[2018-07-30] MEDS ORDERED: MoRPHine SULFATE 2 MG/ML CARP IV PRN (09:16)
[2018-07-30] MEDS ORDERED: DiphenhydrAMINE HCL 50 MG/ML VIAL IV PRN (09:16)
[2018-07-30] MEDS ORDERED: ePHEDrine sulfate 50 MG/ML AMP IV PRN (09:16)
[2018-07-30] MEDS ORDERED: MEPERIDINE HCL 25 MG/ML CARP IV PRN (09:16)
[2018-07-30] MEDS ORDERED: LACTATED RINGER'S 500 ML IV PRN (09:16)
[2018-07-30] MEDS ORDERED: NALOXONE HCL 1 MG in SODIUM CHLORIDE 0.9% 1000ML 1,000 ML IV PRN (09:16)
[2018-07-30] MEDS ORDERED: ONDANSETRON INJ 2 MG/ML 2 ML VIAL IV PRN (09:16)
[2018-07-30] MEDS ORDERED: NALOXONE HCL 0.4 MG/1 ML VIAL/CARP IV PRN ×2 (09:16→11:19)
[2018-07-30] MEDS ORDERED: MoRPHine SULFATE PF 1 MG/ML 10 ML AMP/VIAL INT SPINAL ONE (09:16)
[2018-07-30] MEDS ORDERED: PROMETHAZINE HCL 25 MG in SODIUM CHLORIDE 0.9% 50 ML IV PRN (09:16)
[2018-07-30] MEDS ORDERED: SODIUM CHLORIDE 0.9% 1000ML 1,000 ML IV SCH (09:30)
[2018-07-30] MEDS ORDERED: NO NARCOTICS OR SEDATIVES SCH (09:30)
[2018-07-30] MEDS ORDERED: PROPOFOL IV EMULSION 10 MG/ML 20 ML VIAL IV ONE (10:14)
[2018-07-30] MEDS ORDERED: LIDOCAINE HCL 2% 2 ML VIAL/AMP(20MG/ML) INFIL ONE (10:14)
[2018-07-30] MEDS ORDERED: PHENYLEPHRINE 100MCG/ML 5ML SYR ONE (10:18)
--- NOTE | 2018-07-30 10:32 | Post Operative Brief Note ---
Immediate Post Op Note v1 Date of Surgery July 30, 2018 Pre & Post Diagnosis Operation Date: 07/30/18 08:50 Pre-Op Diagnosis: Left Hip Advanced Degenerative Joint Disease Post-Op Diagnosis: Left Hip Advanced Degenerative Joint Disease Procedure Operation Date: 07/30/18 08:50 Actual Procedures p Left Total Hip Arthroplasty--Uncemented(Left) - Wilmer Contreras MD Surgeon Wilmer Contreras MD Special Education Director Shannan, PAC Estimated Blood Loss 200 Findings Consistent with Post-Op Diagnosis Fluids 1500 cc Specimens Left Femoral Head Drains Batista Catheter (A 16 [place] batista catheter was inserted by JT Thomas, without difficulty, clear yellow urine obtained, output to be monitored by An esthesia.) Anesthesia Type Spinal MAC Complications none Disposition Accompanied Patient To Recovery: Yes Disposition: Recovery Room
--- NOTE | 2018-07-30 10:53 | Anesthesiology Progress Note ---
Date of Service July 30, 2018 Anesthesia Post Procedure Vital Signs Vital Signs: Temp Pulse Pulse Resp BP Pulse Ox 07/30/18 10:45 60 17 102/60 100 07/30/18 10:35 36.6 C 71 17 103/47 L 100 07/30/18 06:42 36.9 C 76 18 119/74 95 Pain Intensity Left Hip: Pain Intensity: 0 Notes Mental Status: alert / awake / arousable and participated in evaluation Patient Amnestic to Procedure: Yes Nausea / Vomiting: adequately controlled Pain: adequately controlled Airway Patency, RR, SpO2: stable & adequate BP & HR: stable & adequate Hydration State: stable & adequate Anesthetic Complications: no major complications apparent
--- NOTE | 2018-07-30 10:55 | XRay Report ---
SINGLE VIEW PELVIS; SINGLE VIEW LEFT HIP CLINICAL HISTORY: Postoperative examination. FINDINGS: An AP portable view of the hips and pelvis with a crosstable lateral portable view of the l eft hip are obtained. A bipolar left hip arthroplasty is in near-anatomic alignment. At least 2 corti steven lag screws transfix the acetabular cup. No acute fracture is identified. There are expected posto perative changes overlying the left hip including skin clips, subcutaneous gas, and soft tissue swell ing. A bipolar hip arthroplasty is also seen in the right hip. A Huynh catheter is in place. Small ph lebolith are noted in the pelvis. IMPRESSION: Expected postoperative findings status post left hip arthroplasty. No acute fracture is s een. Electronically signed by: Gilmar Anaya M.D. 07/30/2018 10:53 AM
[2018-07-30] MEDS ORDERED: TRAMADOL HCL 50 MG TABLET PO PRN (11:19)
[2018-07-30] MEDS ORDERED: ALUMINUM/MAGNESIUM SUSP 30 ML UDC PO PRN (11:19)
[2018-07-30] MEDS ORDERED: BISACODYL 10 MG SUPP PR PRN (11:19)
[2018-07-30] MEDS ORDERED: METOCLOPRAMIDE HCL INJ 5 MG/ML 2 ML VIAL IV PRN (11:19)
[2018-07-30] MEDS ORDERED: MAGNESIUM HYDROXIDE SUSP 30 ML UDC PO PRN (11:19)
[2018-07-30] MEDS: KETOROLAC 30 MG/ML VIAL IV SCH ×2 (15:25→19:32)
[2018-07-30] MEDS: ACETAMINOPHEN 500 MG TAB PO SCH ×2 (15:26→22:34)
[2018-07-30] MEDS: SODIUM CHLORIDE 0.9% 1000ML 1,000 ML IV SCH ×2 (15:27→21:02)
[2018-07-30] MEDS: CHECK SCOPOLAMINE PATCH PLACEMENT SCH (15:27)
--- NOTE | 2018-07-30 15:29 | Progress Note ---
DATE: 07/30/2018 SUBJECTIVE: 57-year-old female postop from a left hip replacement. She is doing well. Not having any pain yet. No chest pain or shortness of breath. Not feeling dizzy or lightheaded. OBJECTIVE: VITAL SIGNS: Temperature is 36.6. Vital signs stable. PHYSICAL EXAMINATION: GENERAL: Reveals a healthy pleasant, middle-aged female. She is sitting up in bed and looks comfortable. LUNGS: Clear to auscultation. HEART: Regular rate and rhythm. ABDOMEN: Soft, nontender, nondistended. EXTREMITIES: Grossly neurovascularly intact except as follows: Examination of the left hip and leg reveals leg lengths to be equal. Dressing is clean, dry and intact. Thigh is soft and supple. She can dorsiflex and plantarflex her foot appropriately. She is neurologically intact. X-RAYS: X-ray of left hip from recovery room reviewed. It shows left uncemented total hip arthroplasty. Components looked to be in good position. No signs of problems. ASSESSMENT: A 57-year-old female postop from a left hip replacement, doing well. Pain is controlled. Hip is located. She is neurologically intact. PLAN: 1. DVT prophylaxis including thigh-high TEDs, SCDs, and aspirin twice a day. 2. PT/OT. Weight bear as tolerated. Left total hip protocol. 3. Pain control, doing well with current pain regimen. 4. IV antibiotics x24 hours. 5. Smoking history. We will get her a nicotine patch. 6. Disposition: She is planning to be discharged to home likely with some home health once adequately recovered.
[2018-07-30] MEDS ORDERED: TRANEXAMIC ACID 1,000 MG in 0.9 % SODIUM CHLORIDE 100 ML IV SCH (16:33)
[2018-07-30] MEDS: NICOTINE 14 MG/24 HR PATCH TD SCH (16:40)
[2018-07-30] MEDS: FERROUS GLUCONATE 324 MG TAB PO SCH (18:17)
[2018-07-30] MEDS: ASCORBIC ACID 500 MG TAB PO SCH (18:17)
[2018-07-30] MEDS: CEFAZOLIN 1000MG 1,000 MG/7.5 ML SYR IV SCH (18:17)
[2018-07-30] MEDS: ASPIRIN 81 MG ECTAB PO SCH (21:00)
[2018-07-30] MEDS: DOCUSATE SODIUM 100 MG CAP PO SCH (21:00)
[2018-07-30] MEDS: SENNA 8.6 MG TAB PO SCH (21:00)
--- NOTE | 2018-07-31 00:50 | Operative Report ---
DATE OF OPERATION: 07/30/2018 SURGEON: Wilmer Contreras MD POISER BALANCE: JT Rodas PREOPERATIVE DIAGNOSIS: Advanced left hip degenerative joint disease. POSTOPERATIVE DIAGNOSIS: Advanced left hip degenerative joint disease. PROCEDURE PERFORMED: Left uncemented ceramic on highly cross-linked polyethylene total hip arthroplasty. COMPLICATIONS: None. ESTIMATED BLOOD LOSS: 200 mL. FLUID REPLACEMENT: 1500 mL crystalloid fluid replacement. ANESTHESIA: Spinal. DRAINS: None. SPECIMENS: Left femoral head sent for pathology. OPERATIVE INDICATIONS: The patient is a 57-year-old female who has had several-year history of increasing bilateral hip pain and discomfort that markedly worse over the past year. 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 X-ray show advanced inflammatory type arthritic disease of both hips with joint destruction. She underwent a right total hip replacement 2 months ago and has done remarkably well from this. She looks to have a left total hip arthroplasty. OPERATIVE FINDINGS: Operative findings revealed advanced left hip DJD. She had extensive grade 4 disease with inflammatory changes and cystic erosions on both the femoral and acetabular side. She had a moderate sized joint effusion. Some moderate synovitis. OPERATIVE IMPLANTS: Operative implants consists of 1. A Biomet G7 size 54 mm acetabular shell. 2. A 6.5 cancellous acetabular screws, 1 at 35 mm length and 1 at 20 mm length. 3. An apex hole eliminator. 4. The highly cross-linked polyethylene liner with a 54 mm outer diameter and 36 mm inner diameter. 5. A DePuy Corail size 12 KLA femoral stem. 6. A +5/36 mm ceramic articular ball. OPERATIVE PROCEDURE: The patient taken to the operating room, identified and placed on the operative table in supine position. All contact areas were appropriately padded. IV antibiotics were provided by anesthesia team. A spinal anesthetic had been implemented in the holding area. Huynh catheter was placed in sterile fashion. The patient was then placed in the right lateral decubitus position. An axillary roll was placed. Stlberg hip positioner was used for positioning and the left hip and leg were then prepped and draped in usual sterile fashion. Posterolateral approach to the left hip was then performed through a curvilinear incision centered over the greater trochanter. Sharp dissection was carried through the subcutaneous tissue down to the level of the IT band and gluteal fascia. The IT band and gluteal fascia were incised longitudinally in line with skin incision. The underlying greater trochanteric bursa was excised. The piriformis and external rotators were tagged and taken off the posterior aspect of the hip joint capsule. Great care was taken throughout the procedure to protect the sciatic nerve at all times. Posterior capsulotomy was then performed leaving a large flap for later repair. Hip was internally rotated and dislocated. A femoral neck osteotomy cut was made with the final cut about 8 mm above the lesser trochanter. The femoral head was removed and sent for pathology. The femur was retracted anteriorly. Attention was then drawn to the acetabulum. The acetabulum labrum was excised. The pulvinar fat was excised. Sequential reaming of the acetabulum was then performed beginning with a size 45 and progressing up to 53. A 54 mm Biomet G7 acetabular shell was then placed in about 40 degrees of lateral opening and 20 degrees of anteversion. It was fixed with two 6.5 cancellous acetabular screws. A trial liner was placed. Attention was then drawn to the femur. The proximal femur was entered with [place] cutter followed by canal finder. I broached beginning with a size 8 and progressing up to 12. We got excellent fit in the 12. The calcar reamer was used to smoothen off the calcar. I trialed the hip and the +5 articular ball seemed to recreate soft tissue tension and stability appropriately and leg lengths to be equal. The hip was fully stable in full extension and external rotation and flexion to 90 degrees, internal rotation to about [address] a kirkpatrick on the inferior and posterior to maximize her stability in flexion. We elected to place these implants. All trial implants were removed. An apex hole eliminator was placed. Highly cross-linked polyethylene liner with a kirkpatrick placed inferior and posterior was then placed. A DePuy CORAIL size 12 KLA femoral stem was impacted in position followed by a +5/36 mm ceramic articular ball. Hip was located and once again found to be stable. Attention was then drawn toward closing. The wound was irrigated with copious amounts of pulsatile lavage solution. I injected locally with 60 mL of 0.5% Marcaine with epinephrine. The posterior capsule and external rotators were then repaired through drill holes in the posterior trochanter with #2 Ti-Cron suture. The IT band and gluteal fascia were then closed with #1 PDS suture in running fashion. The subcutaneous tissue was then closed in 2 layers with the deep layer with #1 Vicryl suture and subcutaneous tissue with 2-0 Dexon suture in a buried interrupted fashion. The skin was closed with skin la. Leg was then cleaned and dried and a sterile dressing of Xeroform, 4 x 4, sterile ABD pad and foam tape was applied. The patient then transferred to the recovery room in stable condition. The patient tolerated the procedure well with no complications. All needle and sponge counts were correct at the end of the operation. I attest to the content of the Intraoperative Record and any orders documented therein. Any exceptions are noted below. MTDD
[2018-07-31] MEDS: CHECK SCOPOLAMINE PATCH PLACEMENT SCH ×3 (01:38→16:47)
[2018-07-31] MEDS: CEFAZOLIN 1000MG 1,000 MG/7.5 ML SYR IV SCH (01:39)
[2018-07-31] MEDS: KETOROLAC 30 MG/ML VIAL IV SCH ×4 (01:39→20:03)
[2018-07-31] MEDS ORDERED: DC INTRASPINAL MORPHINE ONE (03:16)
[2018-07-31] MEDS ORDERED: ONDANSETRON INJ 2 MG/ML 2 ML VIAL IV PRN (03:17)
[2018-07-31] MEDS ORDERED: HYDROmorphone INJ 0.5 MG/0.5 ML SYR IV PRN (03:17)
[2018-07-31] MEDS: ACETAMINOPHEN 500 MG TAB PO SCH ×3 (05:46→21:21)
[2018-07-31 06:01] LABS: Basophils # (auto) 0.04 K/uL (0-0.2); Basophils % (auto) 0.7 %; Eosinophils # (auto) 0.05 K/uL (0-0.5); Eosinophils % (auto) 0.8 %; Hematocrit (blood only) 29.2 % (37-47); Hemoglobin 9.1 g/dL (12.0-16.0); Immature Granulocytes # (auto) 0.02 K/uL (0.00-0.02); Immature Granulocytes % (auto) 0.3 %; Lymphocytes # (auto) 0.79 K/uL (1.2-3.4); Lymphocytes % (auto) 13.2 %; Mean Corpuscular Hgb Conc 31.2 g/dL (32-36); Mean Platelet Volume 8.8 fL (7.4-10.4); Monocytes # (auto) 0.59 K/uL (0.11-0.59); Monocytes % (auto) 9.9 %; Neutrophils # (auto) 4.49 K/uL (1.4-6.5); Neutrophils % (auto) 75.1 %; Platelet Count 296 K/uL (130-400); RDW Coefficient of Variation 15.4 % (11.5-14.5); RDW Standard Deviation 52.1 fL (36.4-46.3); Red Blood Count 3.14 M/uL (4.2-5.4); White Blood Count 5.98 K/uL (4.8-10.8)
[2018-07-31 06:40] LABS: BUN Creatinine Ratio 20.7 (10-20); Creatinine Clr Calc Pharmacy 86.7 ml/min; Est GFR (African American) 109.6; Est GFR (Non-African American) 94.6; Potassium 3.9 mmol/L (3.5-5.1)
--- NOTE | 2018-07-31 08:39 | Progress Note ---
DATE: 07/31/2018 SUBJECTIVE: A 57-year-old white female postop day 1 from a left hip replacement. She is doing pretty well. Pain is reasonably well controlled. Painful with walking, but at the resting, not much pain at all. No chest pain or shortness of breath. Not feeling dizzy or lightheaded. OBJECTIVE: VITAL SIGNS: Temperature 37.4. Vital signs stable. GENERAL: Physical examination shows a pleasant, middle-aged female. She is sitting up at her bedside chair and looks pretty comfortable. EXTREMITIES: Examination of the left hip reveals the dressing to be clean, dry and intact. Leg lengths are equal. She can dorsiflex and plantarflex her foot appropriately. She is neurologically intact. LABORATORY DATA: Hemoglobin 9.1. Hematocrit 29.2. Electrolytes are stable. ASSESSMENT: A 57-year-old white female postop day 1 from a left hip replacement. She is doing pretty well. She does have this chronic underlying anemia, but asymptomatic. Pain is controlled. Hip is located. She is neurologically intact. PLAN: 1. DVT prophylaxis including thigh-high TEDs, SCDs, and aspirin twice a day. 2. PT/OT. Weight bear as tolerated. Left total hip protocol. 3. Pain control, doing pretty well with current pain regimen. 4. Disposition: She is going to be discharged to home with some home health once adequately recovered.
[2018-07-31] MEDS: NICOTINE 14 MG/24 HR PATCH TD SCH (09:07)
[2018-07-31] MEDS: TOLTERODINE TARTRATE LA 4 MG CAPCR PO SCH (09:08)
[2018-07-31] MEDS: PANTOprazole 40 MG TAB PO SCH (09:08)
[2018-07-31] MEDS: MULTIVITAMIN TAB PO SCH (09:08)
[2018-07-31] MEDS: LISINOPRIL 10 MG TAB PO SCH (09:08)
[2018-07-31] MEDS: ASPIRIN 81 MG ECTAB PO SCH ×2 (09:08→20:03)
[2018-07-31] MEDS: FERROUS GLUCONATE 324 MG TAB PO SCH ×2 (09:08→16:47)
[2018-07-31] MEDS: ASCORBIC ACID 500 MG TAB PO SCH ×2 (09:09→16:47)
[2018-07-31] MEDS: DOCUSATE SODIUM 100 MG CAP PO SCH ×2 (09:11→20:03)
--- NOTE | 2018-07-31 10:04 | Anesthesiology Progress Note ---
Date of Service July 31, 2018 Anesthesia Post Procedure Vital Signs Vital Signs: Temp Pulse Pulse Resp BP Pulse Ox Pulse Ox 07/31/18 07:19 37.4 C 87 18 99/60 L 95 07/31/18 03:20 16 93 07/31/18 03:05 36.9 C 82 16 96/57 L 93 07/31/18 01:33 16 92 07/31/18 00:24 16 96 07/30/18 23:20 18 92 07/30/18 23:06 37.4 C 82 18 122/68 92 07/30/18 22:20 84 16 94 07/30/18 21:20 16 99 07/30/18 20:20 16 97 07/30/18 20:00 37.4 C 86 18 94/61 L 94 07/30/18 19:20 16 97 07/30/18 18:21 16 95 07/30/18 17:15 16 94 07/30/18 16:20 16 96 07/30/18 15:35 16 98 07/30/18 15:18 37.2 C 73 16 128/77 97 07/30/18 14:21 66 19 120/66 99 07/30/18 13:14 66 15 121/76 99 07/30/18 12:19 36.6 C 61 16 147/84 H 100 07/30/18 11:56 36.8 C 62 16 119/74 100 07/30/18 11:20 36.5 C 61 16 99/62 L 100 100 07/30/18 11:05 36.4 C L 61 15 108/59 L 100 07/30/18 10:55 56 L 13 99/59 L 100 07/30/18 10:45 60 17 102/60 100 07/30/18 10:35 36.6 C 71 17 103/47 L 100 Pain Intensity Left Hip: Pain Intensity: 0 Notes Mental Status: alert / awake / arousable and participated in evaluation Nausea / Vomiting: adequately controlled Pain: adequately controlled Airway Patency, RR, SpO2: stable & adequate BP & HR: stable & adequate Hydration State: stable & adequate
[2018-07-31] MEDS: TRAMADOL HCL 50 MG TABLET PO PRN (12:57)
[2018-07-31] MEDS: OXYCODONE HCL IR 5 MG TAB (IMMEDIATE RELEASE) PO PRN ×2 (16:46→21:22)
[2018-07-31] MEDS: SENNA 8.6 MG TAB PO SCH (20:03)
[2018-08-01] MEDS: TRAMADOL HCL 50 MG TABLET PO PRN (00:24)
[2018-08-01] MEDS: CHECK SCOPOLAMINE PATCH PLACEMENT SCH ×2 (00:25→08:33)
[2018-08-01] MEDS: KETOROLAC 30 MG/ML VIAL IV SCH ×2 (01:59→08:34)
[2018-08-01] MEDS: ACETAMINOPHEN 500 MG TAB PO SCH (06:18)
[2018-08-01] MEDS: FERROUS GLUCONATE 324 MG TAB PO SCH (08:33)
[2018-08-01] MEDS: DOCUSATE SODIUM 100 MG CAP PO SCH (08:34)
[2018-08-01] MEDS: TOLTERODINE TARTRATE LA 4 MG CAPCR PO SCH (08:34)
[2018-08-01] MEDS: ASCORBIC ACID 500 MG TAB PO SCH (08:34)
[2018-08-01] MEDS: MULTIVITAMIN TAB PO SCH (08:35)
[2018-08-01] MEDS: NICOTINE 14 MG/24 HR PATCH TD SCH (08:36)
[2018-08-01] MEDS: ASPIRIN 81 MG ECTAB PO SCH (08:36)
[2018-08-01] MEDS: PANTOprazole 40 MG TAB PO SCH (08:38)
[2018-08-01] MEDS: LISINOPRIL 10 MG TAB PO SCH (08:38)
--- NOTE | 2018-08-01 08:53 | Progress Note ---
DATE: 08/01/2018 SUBJECTIVE: A 57-year-old white female postop day 2 from a left hip replacement. She is doing pretty well. Pretty painful with walking and weightbearing, that is about it. Not much pain resting. No chest pain or shortness of breath. Not feeling dizzy or lightheaded. OBJECTIVE: VITAL SIGNS: Temperature 36.8. Vital signs stable. GENERAL: Physical examination reveals a pleasant, middle-aged female. She is sitting up in her bed and looks quite comfortable. EXTREMITIES: Examination of left hip reveals the dressing to be clean, dry, and intact. Thigh is soft and supple. Hip is located. She is neurologically intact. ASSESSMENT: A 57-year-old white female postop day 2 from a left hip replacement, doing well. She does have some chronic underlying anemia but asymptomatic. Her vitals are stable. PLAN: 1. DVT prophylaxis including thigh-high TEDs, SCDs, and aspirin twice a day. 2. PT/OT. Weight bear as tolerated. Left total hip protocol. 3. Pain control, doing well with current pain regimen. 4. Anemia. Continue iron supplementation. She will follow up with her medical doctor regarding this. 5. Disposition: Plan to discharge to home with some home health later today.
--- NOTE | 2018-08-02 09:32 | Discharge Summary ---
Date of Service August 09, 2018 Discharge Data Consultations 07/31/18 08:00 Consult Case Management - Discharge Planning Routine Procedures Performed Operation Date: 07/30/18 08:50 Actual Procedures p Left Total Hip Arthroplasty--Uncemented(Left) - Wilmer Contreras MD
--- NOTE | 2018-08-04 16:30 | Discharge Summary ---
ADMITTING PHYSICIAN AND SURGEON: Dr. Wilmer Contreras. ADMITTING DIAGNOSIS: Left hip degenerative joint disease. SURGERY PERFORMED: Left total hip arthroplasty. SECONDARY DIAGNOSES: Arthritis, hypertension, chronic anemia. CONSULTS: None obtained. HISTORY AND PHYSICAL EXAMINATION: Well documented in the patient's chart. HOSPITAL COURSE: The patient was admitted on 07/30/2018 and underwent total hip arthroplasty, tolerated the procedure well. There were no complications. She was transferred to the PACU postoperatively and later to the orthopedic for further care. She was given Ancef for antibiotic prophylaxis, VIVIAN stockings, SCDs and aspirin for DVT prophylaxis. Hemoglobin, hematocrit and vital signs were monitored during her hospital stay and remained stable. She developed some postoperative anemia. She had chronic anemia. She received an iron supplement; did not receive any blood transfusions. There were no complications. On postoperative day 2, she was tolerating a regular diet, pain was controlled with oral pain medicine. She was participating in physical therapy. On postop day 2, she was discharged home, set up with home health services, given printed discharge instructions including new prescriptions for extra strength Tylenol, aspirin and tramadol. Continue home medications, continue physical therapy, weightbearing as tolerated, VIVIAN stockings, total hip precautions. Followup in approximately 2 weeks postoperatively or sooner if there are any problems or concerns.
== END 2018-08-01 11:12 | disposition home health service (06) | DRG 470 ==
LOC: ASU 06:12 → 3E 11:27